=== PATIENT | male | born 1945 | race American Indian/Alaskan Native ===

== ENCOUNTER 2016-04-22 17:15 | Emergency (ER) | payer MEDICARE ==
[2016-04-22 17:58] VITALS: BP 148/88
[2016-04-22] MEDS ORDERED: TYLENOL #3 PO ONE (21:20)
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
[2016-04-22 21:51] LABS: Basophils % (Auto) 0.7 % (0.0-1.8); Eosinophils % (Auto) 0.6 % (0.0-4.3); Hematocrit 39.8 % (35.5-45.6); Hemoglobin 13.2 gm/dl (11.8-15.2); Mean Corpuscular HGB Conc 33 % (32-34); Mean Corpuscular Hemoglobin 30 pg (28-32); Mean Corpuscular Volume 90 fl (84-94); Platelet Count 245 K/mm3 (140-440); Red Blood Count 4.43 M/mm3 (3.65-5.03); Red Cell Distribution Width 13.9 % (13.2-15.2); White Blood Count 7.2 K/mm3 (4.5-11.0)
[2016-04-22 22:13] LABS: Blood Urea Nitrogen 21 mg/dL (9-20); Calcium 9.5 mg/dL (8.4-10.2); Carbon Dioxide 26 mmol/L (22-30); Chloride 99.5 mmol/L (98-107); Glucose 128 mg/dL (75-100); Potassium 4.3 mmol/L (3.6-5.0); Sodium 139 mmol/L (137-145)
[2016-04-22 22:15] LABS: Anion Gap 18 mmol/L
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
== END 2016-04-23 01:57 | disposition home or self-care (01) ==
LOC: ED 17:15
DX: S13.4XXA Sprain of ligaments of cervical spine, initial encounter (principal); H57.12 Ocular pain, left eye; H54.42 Blindness, left eye, normal vision right eye; I10 Essential (primary) hypertension; E11.9 Type 2 diabetes mellitus without complications; E78.00 Pure hypercholesterolemia, unspecified; Z87.891 Personal history of nicotine dependence; Z89.512 Acquired absence of left leg below knee
CPT/HCPCS: 36415; 70450; 70486; 72125; 80048; 85025